=== PATIENT | male | born 1960 ===

== ENCOUNTER 2021-04-17 13:58 | Emergency (ER) | payer MEDICAID ==
[~2021-04-17] VITALS: Ht 185.4 cm; Wt 97.7 kg
[2021-04-17 14:02] VITALS: BP 112/79
== END 2021-04-17 20:09 | disposition left against medical advice (07) ==
LOC: ER 13:59
DX: T78.40XA Allergy, unspecified, initial encounter (principal); Z53.21 Procedure and treatment not carried out due to patient leaving prior to being seen by health care provider; Y92.89 Other specified places as the place of occurrence of the external cause